=== PATIENT | male | born 1955 | race Caucasian/White ===

== ENCOUNTER 2019-12-26 11:23 | Outpatient (CLI) | payer OTHER, SELFPAY ==
--- NOTE | ~2019-12-26 | CT_ITS ---
EXAMINATION: CT lung screening EXAM DATE: 12/26/2019 11:47 INDICATION: Personal history of nicotine dependence. TECHNIQUE: Spiral low dose CT of the chest without contrast. Axial, coronal and sagittal images were reviewed. The dose-length product (DLP) for this examination was 636.86 mGy-cm. The exposure was t ailored according to patient size (auto mA exposure control), and iterative reconstruction (ASIR) was used as additional dose reduction technique. There is no prior study for comparison. FINDINGS: Small region of lingular scarring. Hilar, mediastinal calcifications from prior granulomat ous process. Several scattered pulmonary nodules 2 mm or less. Tracheobronchial tree is patent. Th ere is no mediastinal, hilar or axillary lymphadenopathy. There are no pleural or pericardial effus ions. There is no pneumothorax. Heart normal in size. There is moderate coronary arterial calci fication, arterial sclerosis. There is mild emphysema. Upper abdomen is unremarkable. Patient has d iffuse idiopathic skeletal hyperostosis (DISH). Old left rib fractures. IMPRESSION: Lung-RADS category 2, benign appearance or behavior (<1% chance of malignancy); recommend continued LDCT screening in 1 year. > Reviewed, dictated and finalized at location B.
== END 2019-12-26 11:24 | disposition home or self-care (01) ==
LOC: ANHIMG 11:28
PROVIDERS: PCP Internal Medicine; Visit Provider Internal Medicine
DX: Z12.2 Encounter for screening for malignant neoplasm of respiratory organs (principal); Z87.891 Personal history of nicotine dependence
CPT/HCPCS: G0297

== ENCOUNTER 2020-07-10 07:14 | Outpatient (CLI) | payer OTHER, SELFPAY ==
[2020-07-10 08:25] LABS: Basophils Absolute Auto 0.1 K/mm3 (0.0-0.1); Basophils Percent Auto 0.9 % (0.2-1.2); Eosinophils Absolute Auto 0.4 K/mm3 (0-0.3); Eosinophils Percent Auto 7.3 % (0-4.4); Hematocrit 36.4 % (42.0-52.0); Hemoglobin 12.2 g/dL (14.0-18.0); Immature Granulocyte Absolute 0.04 K/mm3 (0.00-0.031); Immature Granulocyte Percent A 0.7 % (0-0.5); Lymphocytes Absolute Auto 1.76 K/mm3 (0.9-3.2); Lymphocytes Percent Auto 31.9 % (18.3-44.2); Mean Corpuscular HGB Conc 33.5 g/dl (32-36); Mean Corpuscular Hemoglobin 31.2 pg (26-34); Mean Corpuscular Volume 93.1 fl (80-100); Mean Platelet Volume 10.6 fl (7.4-10.4); Monocytes Absolute Auto 0.4 K/mm3 (0.1-0.6); Monocytes Percent Auto 7.4 % (2.6-8.5); Neutrophils Absolute Auto 2.9 K/mm3 (1.3-6.7); Neutrophils Percent Auto 51.8 % (45.5-73.1); Platelet Count Result 176 k/mm3 (150-375); Red Blood Count 3.91 M/mm3 (4.6-6.20); Red Cell Distribution Width 12.8 % (11.5-14.5); White Blood Count 5.5 K/mm3 (4.5-10.0)
[2020-07-10 08:39] LABS: Alanine Aminotransferase 67 U/L (4-50); Alkaline Phosphatase 62 U/L (38-126); Anion Gap 7 mmol/L (8-16); Aspartate Amino Transferase 58 U/L (17-59); Bilirubin,Total 0.5 mg/dL (0.2-1.3); Blood Urea Nitrogen 17 mg/dL (9-20); Calcium 9.1 mg/dL (8.4-10.2); Carbon Dioxide 23 mmol/L (22-30); Chloride 108 mmol/L (98-107); Cholesterol 166 mg/dL (0-200); Estimated Glomerular Filt Rate > 60; Glucose 139 mg/dL (75-110); HDL Direct 37 mg/dL; Potassium 4.2 mmol/L (3.4-5.0); Sodium 138 mmol/L (137-145); Triglycerides 108 mg/dL (<150)
[2020-07-10 08:50] LABS: LDL Cholesterol Direct 98 mg/dL
[2020-07-10 09:09] LABS: Creatinine Urine 184.7 mg/dL; Prostate Specific Antigen < 0.1 ng/mL (< OR = 4.0)
[2020-07-10 09:17] LABS: MALB Creatinine Ratio 42.4 mg/g (0-30); Microalbumin Urine Random 78.3 mg/L (0-16.7)
[2020-07-10 09:19] LABS: Hemoglobin A1C 6.7 % (<5.7)
== END 2020-07-10 07:15 | disposition home or self-care (01) ==
PROVIDERS: PCP Internal Medicine; Visit Provider Internal Medicine
DX: I10 Essential (primary) hypertension (principal); E11.9 Type 2 diabetes mellitus without complications; Z12.5 Encounter for screening for malignant neoplasm of prostate
CPT/HCPCS: 36415; 80053; 80061; 82043; 83036; 84153; 85025; G0103

== ENCOUNTER 2020-09-06 17:18 | Emergency (ER) | payer OTHER, SELFPAY ==
--- NOTE | 2020-09-06 17:24 | ED.GENADULT ---
HPI - General Adult General Chief complaint: Skin/Abscess/Foreign Body Stated complaint: possible rash Time Seen by Provider: 09/06/20 17:24 Source: patient Mode of arrival: ambulatory Limitations: no limitations History of Present Illness HPI narrative: 64-year-old male patient presents to the [facility] with complaints of a rash that he first noticed last night to the right side of the abdomen and states he has also been having pain to the right side of abdomen as well as the right side of the back. Patient denies any fevers, body aches or chills. Patient denies any nausea, vomiting or diarrhea. Patient states he has been taking Tylenol for the pain. Related Data Home Medications Medication Instructions Recorded Confirmed Azo Cranberry + Probiotic 1 tab-cap PO DAILY 09/06/20 09/06/20 amlodipine 5 mg PO DAILY 09/06/20 09/06/20 lisinopril 20 mg PO DAILY 09/06/20 09/06/20 metformin 500 mg PO BID 09/06/20 09/06/20 Allergies Allergy/AdvReac Type Severity Reaction Status Date / Time No Known Allergies Allergy Verified 09/06/20 17:36 Review of Systems Review of Systems: Narrative: CONSTITUTIONAL: Denies fever, chills, or sweats. EYES: Denies visual changes, redness, or discharge. ENT: Denies rhinorrhea, congestion, sore throat, or otalgia. CARDIOVASCULAR: Denies chest pain, palpitations, or edema. RESPIRATORY: Denies cough or dyspnea. GASTROINTESTINAL: Denies abdominal pain, nausea, vomiting, or diarrhea. GENITOURINARY: Denies dysuria or hematuria. SKIN: Positive rash to right abdomen since last night with pain to the area for the last 5 days. MUSCULOSKELETAL: Denies back pain, joint pain, or myalgia. NEUROLOGIC: Denies headache, numbness, or weakness. PSYCHIATRIC: Denies anxiety or depression. FORMERLY [facility] Past Medical History Medical History (Updated 09/06/20 @ 17:40 by NATALYA Mckeon) COPD (chronic obstructive pulmonary disease) Fractures Left arm fracture as child Genitourinary disorder Urethra surgery and occasional self cath Hypertension Sleep apnea Surgical History Surgical History (Updated 09/06/20 @ 17:25 by NATALYA Mckeon) History of bilateral carpal tunnel release Hx of cholecystectomy Family History Family History (Updated 09/06/20 @ 17:26 by NATALYA Mckeon) Other Family history of cardiovascular disease Family history of malignant neoplasm Lung cancer Lupus Social History Social History Smoking status: Former smoker Smoking end date: 10/15/14 Alcohol intake: never Exam Narrative: Exam Narrative: GENERAL: Well-appearing, well-nourished, and in no acute distress. HEAD: Normocephalic, atraumatic. EYES: PERRLA and EOMI. ENT: Nares clear, no rhinorrhea or epistaxis. Mucous membranes moist. NECK: Supple. No lymphadenopathy CHEST: Clear to auscultation. No respiratory distress. HEART: Regular rate and rhythm. No murmur heard. Normal peripheral pulses. ABDOMEN: Soft, nontender, nondistended, normal active bowel sounds. EXTREMITIES: Normal range of motion. No edema. SKIN: Warm, dry, patient has pustule rash on a erythemic base noted to the right side of the chest wall right under the breast that wraps around to the back right along the T6/T7 dermatome. The rash does not cross midline. NEURO: No focal deficits. Alert and oriented x3. Course Vital Signs Vital signs: Vital Signs Temperature 37.4 C 09/06/20 17:30 Pulse Rate 80 09/06/20 17:30 Respiratory Rate 16 09/06/20 17:30 Blood Pressure 153/77 H 09/06/20 17:30 Pulse Oximetry 98 09/06/20 17:30 Temperature 37.4 C 09/06/20 17:30 Pulse Rate 80 09/06/20 17:30 Respiratory Rate 16 09/06/20 17:30 Blood Pressure 153/77 H 09/06/20 17:30 Pulse Oximetry 98 09/06/20 17:30 Vital signs reviewed. The patient has been informed that they may have pre-hypertension or Hypertension based on a BP reading in the department. I recommend that the patient call the primary care provider listed
[2020-09-06 17:30] VITALS: BP 153/77; PULSE 80; RESP 16; TEMP 37.4; O2SAT 98
== END 2020-09-06 17:45 | disposition home or self-care (01) ==
PROVIDERS: Emergency Provider Nurse Practitioner Family; PCP Internal Medicine
DX: B02.9 Zoster without complications (principal); Z87.891 Personal history of nicotine dependence; J44.9 Chronic obstructive pulmonary disease, unspecified; I10 Essential (primary) hypertension; G47.30 Sleep apnea, unspecified
CPT/HCPCS: 99213; G0463

== ENCOUNTER 2020-12-07 09:05 | Outpatient (CLI) | payer OTHER, SELFPAY ==
[2020-12-07 09:45] LABS: Add Urine Microscopic? YES; Appearance Urine Clear (Clear); Bacteria Urine Trace /hpf; Bilirubin Urine Negative (Negative); Blood Urine 1+ (Negative); Color Urine Yellow (Yellow); Glucose Urine UA Negative (Negative); Ketones Urine Negative (Negative); Leukocyte Esterase Ur 1+ LEU/UL (NEGATIVE); Nitrate Urine Negative (Negative); Protein Urine Negative (Negative); RBC Urine 21-50 /hpf (0-2); Specific Grav Ur 1.015 (1.001-1.035); Squamous Epithelial Cell Urine Occasional /hpf (Few); Urobilinogen Urine Negative mg/dL (<2.0); WBC Urine 21-30 /hpf (0-3)
== END 2020-12-07 09:06 | disposition home or self-care (01) ==
PROVIDERS: PCP Internal Medicine
DX: N35.911 Unspecified urethral stricture, male, meatal (principal)
CPT/HCPCS: 81001; 87077; 87086; 87088

== ENCOUNTER 2021-01-26 09:02 | Outpatient (CLI) | payer OTHER, SELFPAY | END 2021-01-26 09:03 | disposition home or self-care (01) | LOC: ANHCOVIDVC 09:02 | PROVIDERS: PCP Internal Medicine | DX: Z23 Encounter for immunization (principal) | CPT/HCPCS: 0001A; 91300 ==

== ENCOUNTER 2021-02-16 08:58 | Outpatient (CLI) | payer OTHER, SELFPAY | END 2021-02-16 08:59 | disposition home or self-care (01) | LOC: ANHCOVIDVC 08:58 | PROVIDERS: PCP Internal Medicine | DX: Z23 Encounter for immunization (principal) | CPT/HCPCS: 0002A; 91300 ==

== ENCOUNTER 2021-03-17 08:07 | Outpatient (CLI) | payer OTHER, SELFPAY ==
[2021-03-17 08:49] LABS: Alanine Aminotransferase 101 U/L (4-50); Albumin Level 4.4 g/dL (3.5-5.1); Alkaline Phosphatase 80 U/L (38-126); Anion Gap 11 mmol/L (8-16); Aspartate Amino Transferase 110 U/L (17-59); Bilirubin,Total 0.5 mg/dL (0.2-1.3); Blood Urea Nitrogen 14 mg/dL (9-20); Calcium 9.6 mg/dL (8.4-10.2); Carbon Dioxide 21 mmol/L (22-30); Chloride 109 mmol/L (98-107); Cholesterol 204 mg/dL (0-200); Estimated Glomerular Filt Rate > 60; Glucose 172 mg/dL (75-110); HDL Direct 45 mg/dL; Potassium 4.5 mmol/L (3.4-5.0); Sodium 141 mmol/L (137-145); Triglycerides 157 mg/dL (<150)
[2021-03-17 08:50] LABS: Basophils Absolute Auto 0.1 K/mm3 (0.0-0.1); Basophils Percent Auto 0.8 % (0.2-1.2); Eosinophils Absolute Auto 0.4 K/mm3 (0-0.3); Eosinophils Percent Auto 6.4 % (0-4.4); Hematocrit 42.6 % (42.0-52.0); Hemoglobin A1C 7.4 % (<5.7); Immature Granulocyte Absolute 0.05 K/mm3 (0.00-0.031); Immature Granulocyte Percent A 0.8 % (0-0.5); Lymphocytes Absolute Auto 1.67 K/mm3 (0.9-3.2); Lymphocytes Percent Auto 27.6 % (18.3-44.2); Mean Corpuscular HGB Conc 32.9 g/dl (32-36); Mean Corpuscular Hemoglobin 30.6 pg (26-34); Mean Corpuscular Volume 93.2 fl (80-100); Mean Platelet Volume 10.2 fl (7.4-10.4); Monocytes Absolute Auto 0.5 K/mm3 (0.1-0.6); Monocytes Percent Auto 7.8 % (2.6-8.5); Neutrophils Absolute Auto 3.4 K/mm3 (1.3-6.7); Neutrophils Percent Auto 56.6 % (45.5-73.1); Platelet Count Result 174 k/mm3 (150-375); Red Blood Count 4.57 M/mm3 (4.6-6.20); Red Cell Distribution Width 13.1 % (11.5-14.5); White Blood Count 6.1 K/mm3 (4.5-10.0)
[2021-03-17 09:01] LABS: LDL Cholesterol Direct 93 mg/dL
[2021-03-17 09:21] LABS: Prostate Specific Antigen < 0.1 ng/mL (< OR = 4.0)
[2021-03-17 09:28] LABS: Creatinine Urine 197.3 mg/dL
[2021-03-17 09:32] LABS: MALB Creatinine Ratio 4.7 mg/g (0-30); Microalbumin Urine Random 9.3 mg/L (0-16.7)
[2021-03-17 09:41] LABS: Free T4 Free Thyroxine 1.05 ng/mL (0.78-2.19)
[2021-03-17 09:56] LABS: Hepatitis B Surface Antigen Negative (Negative)
[2021-03-17 10:02] LABS: HAV RESULT Negative (Negative); Hepatitis B Core IgM Result Negative (Negative)
[2021-03-17 10:14] LABS: Hepatitis C Virus Antibody Negative (Negative)
[2021-03-21 08:25] LABS: GGT 59 U/L (3-70)
== END 2021-03-17 08:08 | disposition home or self-care (01) ==
LOC: ANHLAB 08:10
PROVIDERS: PCP Internal Medicine; Visit Provider Internal Medicine
DX: Z12.5 Encounter for screening for malignant neoplasm of prostate (principal); E11.9 Type 2 diabetes mellitus without complications; I10 Essential (primary) hypertension; R74.01 Elevation of levels of liver transaminase levels
CPT/HCPCS: 36415; 80053; 80061; 80074; 82043; 82977; 83036; 84153; 84439; 84443; 85025; G0103

== ENCOUNTER 2021-03-21 07:37 | Outpatient (CLI) | payer OTHER, SELFPAY ==
--- NOTE | ~2021-03-21 | CT_ITS ---
EXAMINATION: CT lung screening DATE: 03/21/2021 08:13 INDICATION: History of nicotine dependence TECHNIQUE: Computed tomography (CT) of the chest was performed without intravenous contrast. The dose -length product was 684.93 mGy-cm. Automated exposure control and iterative reconstruction technique were employed. COMPARISON: CT dated 12/26/2019 FINDINGS: No thoracic lymphadenopathy. There are calcified mediastinal and hilar lymph nodes, consist ent with chronic granulomatous disease. No significant pleural or pericardial effusion. There are chr onic healed left rib fractures. Heart size normal. There is atherosclerosis of the aorta and coronary arteries. There is lingular atelectasis/scarring. Stable small bilateral pulmonary nodules measuring 4 mm or less, largest measuring 4 mm, right upper lobe image 50. No new pulmonary nodules. No endobr onchial lesions. There are cholecystectomy clips. Otherwise, the upper abdomen is unremarkable. IMPRESSION: 1. Lung-RADS category 2: Benign appearance or behavior. Continue annual screening with noncontrast lo w-dose chest CT in 12 months. Reviewed, dictated and finalized at location B. IMPRESSION: 1. Lung-RADS category 2: Benign appearance or behavior. Continue annual screeni ng with noncontrast low-dose chest CT in 12 months.
--- NOTE | ~2021-03-21 | US_ITS ---
US abdomen limited INDICATION: PROCEDURE: Realtime right upper abdominal ultrasound. COMPARISON: No prior studies for comparison. FINDINGS: The pancreas is normal without focal mass or pancreatic ductal dilation. Liver echotexture is increased, consistent with fatty infiltration. Liver is enlarged. There is normal directional fl ow in the portal vein. Gallbladder is surgically absent. Common bile duct measures 8.4 mm. No sonographic Swanson's sign. IMPRESSION: 1: Hepatomegaly with fatty infiltration. 2: Status post cholecystectomy with expected prominence of the common bile duct. Reviewed, dictated and finalized at location B. IMPRESSION: 1: Hepatomegaly with fatty infiltration. 2: Status post cholecystectomy with expected prominence of the common bile duct .
== END 2021-03-21 07:38 | disposition home or self-care (01) ==
LOC: ANHIMG 07:43
PROVIDERS: PCP Internal Medicine; Visit Provider Internal Medicine
DX: R74.01 Elevation of levels of liver transaminase levels (principal); Z87.891 Personal history of nicotine dependence; Z90.49 Acquired absence of other specified parts of digestive tract
CPT/HCPCS: 71271; 76705

== ENCOUNTER 2021-03-25 07:45 | Outpatient (CLI) | payer OTHER, SELFPAY ==
[2021-03-25 09:19] LABS: Basophils Absolute Auto 0.1 K/mm3 (0.0-0.1); Basophils Percent Auto 0.9 % (0.2-1.2); Eosinophils Absolute Auto 0.4 K/mm3 (0-0.3); Eosinophils Percent Auto 6.8 % (0-4.4); Hemoglobin 13.1 g/dL (14.0-18.0); Immature Granulocyte Absolute 0.05 K/mm3 (0.00-0.031); Immature Granulocyte Percent A 0.9 % (0-0.5); Lymphocytes Absolute Auto 1.66 K/mm3 (0.9-3.2); Lymphocytes Percent Auto 29.6 % (18.3-44.2); Mean Corpuscular HGB Conc 33.6 g/dl (32-36); Mean Corpuscular Hemoglobin 30.6 pg (26-34); Mean Corpuscular Volume 91.1 fl (80-100); Mean Platelet Volume 10.2 fl (7.4-10.4); Monocytes Absolute Auto 0.4 K/mm3 (0.1-0.6); Monocytes Percent Auto 7.1 % (2.6-8.5); Neutrophils Absolute Auto 3.1 K/mm3 (1.3-6.7); Neutrophils Percent Auto 54.7 % (45.5-73.1); Platelet Count Result 177 k/mm3 (150-375); Red Blood Count 4.28 M/mm3 (4.6-6.20); Red Cell Distribution Width 13.1 % (11.5-14.5); White Blood Count 5.6 K/mm3 (4.5-10.0)
[2021-03-25 09:22] LABS: Add Urine Microscopic? YES; Appearance Urine Clear (Clear); Bacteria Urine Trace /hpf; Bilirubin Urine Negative (Negative); Blood Urine Negative (Negative); Color Urine Yellow (Yellow); Glucose Urine UA Negative (Negative); Ketones Urine Negative (Negative); Leukocyte Esterase Ur Trace LEU/UL (Negative); Mucus Urine Few /lpf; Nitrate Urine Negative (Negative); Protein Urine 1+ mg/dL (Negative); Specific Grav Ur 1.028 (1.001-1.035); Squamous Epithelial Cell Urine Moderate /hpf (Few)
[2021-03-25 10:17] LABS: Alanine Aminotransferase 108 U/L (4-50); Albumin Level 4.1 g/dL (3.5-5.1); Alkaline Phosphatase 76 U/L (38-126); Anion Gap 9 mmol/L (8-16); Aspartate Amino Transferase 96 U/L (17-59); Bilirubin,Total 0.4 mg/dL (0.2-1.3); Blood Urea Nitrogen 15 mg/dL (9-20); Carbon Dioxide 23 mmol/L (22-30); Chloride 110 mmol/L (98-107); Estimated Glomerular Filt Rate > 60; Glucose 185 mg/dL (75-110); Parathyroid Intact 94.3 pg/mL (7.5-53.5); Potassium 4.6 mmol/L (3.4-5.0); Sodium 142 mmol/L (137-145); Uric Acid 6.4 mg/dL (3.5-8.5)
[2021-03-25 10:25] LABS: Erythrocyte Sedimentation Rate 38 mm/hr (0-20)
[2021-03-25 11:03] LABS: HIV 1/2 Ab P24 Ag Result Negative (Negative)
[2021-03-25 11:07] LABS: Rapid Plasma Reagin Non-Reactive (NonReactive)
[2021-03-25 11:21] LABS: Prostate Specific Antigen < 0.1 ng/mL (< OR = 4.0)
[2021-03-25 11:35] LABS: Complement C3 136 mg/dL (88-165)
[2021-03-25 11:43] LABS: Creatinine Urine 232.3 mg/dL
[2021-03-25 11:47] LABS: Microalbumin Urine Random 11.7 mg/L (0-16.7)
[2021-03-25 11:58] LABS: Vitamin D 25 Hydroxy 34.3 ng/mL
[2021-03-25 13:13] LABS: Hemoglobin A1C 7.6 % (<5.7)
[2021-03-28 21:17] LABS: Albumin 3.8 g/dL (3.8-4.8); Alpha 1 Globulin 0.3 g/dL (0.2-0.3); Alpha 2 Globulin 0.8 g/dL (0.5-0.9); Beta 1 Globulin 0.5 g/dL (0.4-0.6); Gamma Globulin 1.2 g/dL (0.8-1.7); Protein, Total 7.1 g/dL (6.1-8.1)
[2021-03-29 05:36] LABS: Kappa\\Lambda Light Chains 1.58 (0.26-1.65); Lambda Light Chain 22.4 mg/L (5.7-26.3)
[2021-03-30 00:15] LABS: ANCA Screen Negative (Negative)
[2021-03-31 13:07] LABS: Complement Total CH50 >60 U/mL (31-60)
[2021-03-31 18:39] LABS: Cryoglobulin, QL Negative (Negative)
== END 2021-03-25 07:46 | disposition home or self-care (01) ==
PROVIDERS: PCP Internal Medicine; Visit Provider Specialist
DX: Z12.5 Encounter for screening for malignant neoplasm of prostate (principal); N18.30 Chronic kidney disease, stage 3 unspecified; I12.9 Hypertensive chronic kidney disease with stage 1 through stage 4 chronic kidney disease, or unspecified chronic kidney disease; E78.5 Hyperlipidemia, unspecified; R60.9 Edema, unspecified; E55.9 Vitamin D deficiency, unspecified; N39.0 Urinary tract infection, site not specified; R73.09 Other abnormal glucose
CPT/HCPCS: 36415; 80053; 81001; 81050; 82043; 82306; 82570; 82595; 83036; 83883; 83970; 84153; 84155; 84165; 84550; 85025; 85652; 86021; 86038; 86160; 86162; 86225; 86334; 86592; 86703; G0103; G0432

== ENCOUNTER 2021-03-28 08:20 | Outpatient (CLI) | payer OTHER, SELFPAY ==
[2021-03-28 08:46] LABS: Collection Time Urine 24 HOURS
[2021-03-28 10:42] LABS: Creatinine Urine 156.4 mg/dL; Patient Weight 340 Lbs
[2021-03-28 11:17] LABS: Creatinine Clearance Urine 155.8 ml/min (75-125); Total Volume 24 Hour Urine 1800 ml
== END 2021-03-28 08:21 | disposition home or self-care (01) ==
PROVIDERS: PCP Internal Medicine; Visit Provider Specialist
DX: Z12.5 Encounter for screening for malignant neoplasm of prostate (principal); I12.9 Hypertensive chronic kidney disease with stage 1 through stage 4 chronic kidney disease, or unspecified chronic kidney disease; N18.30 Chronic kidney disease, stage 3 unspecified; E87.2 Acidosis; E78.5 Hyperlipidemia, unspecified; R60.9 Edema, unspecified; E55.9 Vitamin D deficiency, unspecified; N39.0 Urinary tract infection, site not specified; R73.09 Other abnormal glucose; Z11.4 Encounter for screening for human immunodeficiency virus [HIV]
CPT/HCPCS: 82575

== ENCOUNTER 2021-04-06 13:35 | Outpatient (CLI) | payer OTHER, SELFPAY ==
--- NOTE | ~2021-04-06 | US_ITS ---
US renal BI 04/06/2021 14:51 Procedure: Realtime transabdominal ultrasound of the kidneys and bladder. Indication: Chronic kidney disease Comparison: CT dated 10/16/2017 Findings: Renal echotexture is normal bilaterally without hydronephrosis, contour deforming mass or r enal calculus. The right kidney measures 12.1 cm and left kidney measures 11.3 cm. Bladder within no rmal limits, although not well distended. Impression: 1: Unremarkable renal ultrasound. No stones, masses or hydronephrosis. Reviewed, dictated and finalized at location B. Impression: 1: Unremarkable renal ultrasound. No stones, masses or hydronephrosis.
== END 2021-04-06 13:36 | disposition home or self-care (01) ==
LOC: ANHIMG 13:44
PROVIDERS: PCP Internal Medicine; Visit Provider Specialist
DX: N18.9 Chronic kidney disease, unspecified (principal)
CPT/HCPCS: 76775

== ENCOUNTER 2021-04-22 07:52 | Outpatient (CLI) | payer OTHER, SELFPAY ==
[2021-04-22 08:28] LABS: Basophils Percent Auto 0.7 % (0.2-1.2); Eosinophils Absolute Auto 0.4 K/mm3 (0-0.3); Eosinophils Percent Auto 7.1 % (0-4.4); Hematocrit 39.9 % (42.0-52.0); Hemoglobin 13.5 g/dL (14.0-18.0); Immature Granulocyte Absolute 0.05 K/mm3 (0.00-0.031); Immature Granulocyte Percent A 0.9 % (0-0.5); Lymphocytes Absolute Auto 1.69 K/mm3 (0.9-3.2); Lymphocytes Percent Auto 31.4 % (18.3-44.2); Mean Corpuscular HGB Conc 33.8 g/dl (32-36); Mean Corpuscular Hemoglobin 30.5 pg (26-34); Mean Corpuscular Volume 90.3 fl (80-100); Mean Platelet Volume 10.2 fl (7.4-10.4); Monocytes Absolute Auto 0.3 K/mm3 (0.1-0.6); Monocytes Percent Auto 6.3 % (2.6-8.5); Neutrophils Absolute Auto 2.9 K/mm3 (1.3-6.7); Neutrophils Percent Auto 53.6 % (45.5-73.1); Platelet Count Result 165 k/mm3 (150-375); Red Blood Count 4.42 M/mm3 (4.6-6.20); White Blood Count 5.4 K/mm3 (4.5-10.0)
[2021-04-22 08:36] LABS: Albumin Level 4.4 g/dL (3.5-5.1); Anion Gap 10 mmol/L (8-16); Blood Urea Nitrogen 16 mg/dL (9-20); Calcium 9.6 mg/dL (8.4-10.2); Carbon Dioxide 23 mmol/L (22-30); Chloride 105 mmol/L (98-107); Estimated Glomerular Filt Rate > 60; Glucose 174 mg/dL (75-110); Phosphorus 4.2 mg/dL (2.5-4.5); Potassium 4.4 mmol/L (3.4-5.0); Sodium 138 mmol/L (137-145); Uric Acid 6.2 mg/dL (3.5-8.5)
[2021-04-22 08:36] LABS: Add Urine Microscopic? YES; Appearance Urine Clear (Clear); Bilirubin Urine Negative (Negative); Blood Urine Negative (Negative); Color Urine Yellow (Yellow); Glucose Urine UA Negative (Negative); Ketones Urine Negative (Negative); Leukocyte Esterase Ur Trace LEU/UL (Negative); Mucus Urine Rare /lpf; Nitrate Urine Negative (Negative); Protein Urine Negative (Negative); Specific Grav Ur 1.023 (1.001-1.035); Squamous Epithelial Cell Urine Few /hpf (Few)
[2021-04-22 09:01] LABS: Hemoglobin A1C 7.9 % (<5.7)
[2021-04-22 09:07] LABS: Prostate Specific Antigen < 0.1 ng/mL (< OR = 4.0)
[2021-04-22 09:17] LABS: Parathyroid Intact 44.1 pg/mL (7.5-53.5)
[2021-04-22 09:23] LABS: Creatinine Urine 219.7 mg/dL
[2021-04-22 09:39] LABS: Vitamin D 25 Hydroxy 45.1 ng/mL
[2021-04-22 10:15] LABS: Erythrocyte Sedimentation Rate 36 mm/hr (0-20)
== END 2021-04-22 07:53 | disposition home or self-care (01) ==
PROVIDERS: PCP Internal Medicine; Visit Provider Specialist
DX: N18.2 Chronic kidney disease, stage 2 (mild) (principal); E11.65 Type 2 diabetes mellitus with hyperglycemia; E78.5 Hyperlipidemia, unspecified; E55.9 Vitamin D deficiency, unspecified; N39.0 Urinary tract infection, site not specified; Z11.4 Encounter for screening for human immunodeficiency virus [HIV]; Z12.5 Encounter for screening for malignant neoplasm of prostate; I12.9 Hypertensive chronic kidney disease with stage 1 through stage 4 chronic kidney disease, or unspecified chronic kidney disease
CPT/HCPCS: 36415; 80069; 81001; 82043; 82306; 83036; 83970; 84153; 84550; 85025; 85652; 87086

== ENCOUNTER 2021-05-31 07:26 | Outpatient (CLI) | payer OTHER, SELFPAY ==
[2021-05-31 08:16] LABS: Basophils Percent Auto 0.6 % (0.2-1.2); Eosinophils Absolute Auto 0.5 K/mm3 (0-0.3); Eosinophils Percent Auto 7.4 % (0-4.4); Hematocrit 39.4 % (42.0-52.0); Hemoglobin 13.1 g/dL (14.0-18.0); Immature Granulocyte Absolute 0.03 K/mm3 (0.00-0.031); Immature Granulocyte Percent A 0.5 % (0-0.5); Lymphocytes Absolute Auto 1.85 K/mm3 (0.9-3.2); Mean Corpuscular HGB Conc 33.2 g/dl (32-36); Mean Corpuscular Hemoglobin 30.8 pg (26-34); Mean Corpuscular Volume 92.5 fl (80-100); Monocytes Absolute Auto 0.5 K/mm3 (0.1-0.6); Monocytes Percent Auto 7.2 % (2.6-8.5); Neutrophils Absolute Auto 3.5 K/mm3 (1.3-6.7); Neutrophils Percent Auto 55.3 % (45.5-73.1); Platelet Count Result 173 k/mm3 (150-375); Red Blood Count 4.26 M/mm3 (4.6-6.20); Red Cell Distribution Width 13.2 % (11.5-14.5); White Blood Count 6.4 K/mm3 (4.5-10.0)
[2021-05-31 08:38] LABS: LDL Cholesterol Direct 42 mg/dL
[2021-05-31 08:47] LABS: Alanine Aminotransferase 96 U/L (4-50); Albumin Level 4.5 g/dL (3.5-5.1); Alkaline Phosphatase 75 U/L (38-126); Anion Gap 9 mmol/L (8-16); Aspartate Amino Transferase 88 U/L (17-59); Bilirubin,Total 0.5 mg/dL (0.2-1.3); Blood Urea Nitrogen 20 mg/dL (9-20); Calcium 9.4 mg/dL (8.4-10.2); Carbon Dioxide 25 mmol/L (22-30); Chloride 102 mmol/L (98-107); Cholesterol 110 mg/dL (0-200); Estimated Glomerular Filt Rate > 60; Glucose 181 mg/dL (65-110); HDL Direct 46 mg/dL; Potassium 4.7 mmol/L (3.4-5.0); Sodium 136 mmol/L (137-145); Triglycerides 95 mg/dL (<150)
[2021-05-31 08:53] LABS: Creatinine Urine 159.5 mg/dL
[2021-05-31 08:58] LABS: MALB Creatinine Ratio 6.1 mg/g (0-30); Microalbumin Urine Random 9.7 mg/L (0-16.7)
[2021-05-31 09:09] LABS: Vitamin D 25 Hydroxy 48.5 ng/mL
[2021-05-31 09:14] LABS: Hemoglobin A1C 8.3 % (<5.7)
== END 2021-05-31 07:27 | disposition home or self-care (01) ==
LOC: ANHLAB 07:30
PROVIDERS: PCP Internal Medicine; Visit Provider Internal Medicine
DX: R79.89 Other specified abnormal findings of blood chemistry (principal); E11.9 Type 2 diabetes mellitus without complications; Z79.899 Other long term (current) drug therapy; E78.5 Hyperlipidemia, unspecified; E55.9 Vitamin D deficiency, unspecified
CPT/HCPCS: 36415; 80053; 80061; 82043; 82306; 83036; 84439; 84443; 85025

== ENCOUNTER 2021-08-03 12:34 | Outpatient (CLI) | payer OTHER, SELFPAY ==
--- NOTE | ~2021-08-03 | US_ITS ---
EXAMINATION: US thyroid DATE: 08/03/2021 13:38 INDICATION: Abnormal findings of blood chemistry. Elevated TSH level. TECHNIQUE: Multiple ultrasound images of the thyroid were obtained. COMPARISON: None. FINDINGS: The right thyroid lobe measures 6.0 x 1.8 x 2.2 cm. The left thyroid lobe measures 3.7 x 1.2 x 1.3 c m. Thyroid isthmus measures 5 mm in thickness. No discrete nodules identified. Diffuse decreased echo genicity with coarsened echotexture throughout the thyroid. IMPRESSION: 1. Fuse heterogeneous decreased echogenicity with coarsened echotexture throughout the thyroid which could be seen with thyroiditis. No discrete thyroid nodules. 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 IMPRESSION: 1. Fuse heterogeneous decreased echogenicity with coarsened echotexture through out the thyroid which could be seen with thyroiditis. No discrete thyroid nodul es.
== END 2021-08-03 12:35 | disposition home or self-care (01) ==
LOC: ANHIMG 12:42
PROVIDERS: PCP Internal Medicine; Visit Provider Internal Medicine
DX: R79.89 Other specified abnormal findings of blood chemistry (principal)
CPT/HCPCS: 76536

== ENCOUNTER 2021-08-31 07:42 | Outpatient (CLI) | payer OTHER, SELFPAY ==
[2021-08-31 08:29] LABS: Add Urine Microscopic? YES; Appearance Urine Cloudy (Clear); Bacteria Urine Trace /hpf; Bilirubin Urine Negative (Negative); Color Urine Yellow (Yellow); Glucose Urine UA 3+ mg/dL (Negative); Ketones Urine Negative (Negative); Leukocyte Esterase Ur 2+ LEU/UL (Negative); Mucus Urine Rare /lpf; Nitrate Urine Positive (Negative); Protein Urine 1+ mg/dL (Negative); RBC Urine 21-50 /hpf (0-2); Squamous Epithelial Cell Urine Few /hpf (Few); Urobilinogen Urine Negative mg/dL (<2.0); WBC Clumps Urine Present /HPF; WBC Urine >75 /hpf
[2021-08-31 08:33] LABS: Alanine Aminotransferase 63 U/L (4-50); Albumin Level 4.4 g/dL (3.5-5.1); Alkaline Phosphatase 86 U/L (38-126); Anion Gap 11 mmol/L (8-16); Aspartate Amino Transferase 66 U/L (17-59); Bilirubin,Total 0.6 mg/dL (0.2-1.3); Blood Urea Nitrogen 20 mg/dL (9-20); Calcium 9.9 mg/dL (8.4-10.2); Carbon Dioxide 23 mmol/L (22-30); Chloride 101 mmol/L (98-107); Estimated Glomerular Filt Rate > 60; Glucose 429 mg/dL (65-110); Potassium 5.2 mmol/L (3.4-5.0); Sodium 135 mmol/L (137-145); Uric Acid 3.9 mg/dL (3.5-8.5)
[2021-08-31 08:35] LABS: Blood Urine Negative (Negative)
[2021-08-31 08:41] LABS: Basophils Absolute Auto 0.1 K/mm3 (0.0-0.1); Basophils Percent Auto 0.7 % (0.2-1.2); Eosinophils Absolute Auto 0.4 K/mm3 (0-0.3); Eosinophils Percent Auto 5.2 % (0-4.4); Hemoglobin 13.8 g/dL (14.0-18.0); Immature Granulocyte Absolute 0.03 K/mm3 (0.00-0.031); Immature Granulocyte Percent A 0.4 % (0-0.5); Lymphocytes Absolute Auto 2.16 K/mm3 (0.9-3.2); Lymphocytes Percent Auto 30.6 % (18.3-44.2); Mean Corpuscular HGB Conc 34.5 g/dl (32-36); Mean Corpuscular Hemoglobin 30.4 pg (26-34); Mean Corpuscular Volume 88.1 fl (80-100); Mean Platelet Volume 10.5 fl (7.4-10.4); Monocytes Absolute Auto 0.5 K/mm3 (0.1-0.6); Monocytes Percent Auto 7.4 % (2.6-8.5); Neutrophils Absolute Auto 3.9 K/mm3 (1.3-6.7); Neutrophils Percent Auto 55.7 % (45.5-73.1); Platelet Count Result 174 k/mm3 (150-375); Red Blood Count 4.54 M/mm3 (4.6-6.20); Red Cell Distribution Width 12.7 % (11.5-14.5); White Blood Count 7.1 K/mm3 (4.5-10.0)
[2021-08-31 08:42] LABS: Parathyroid Intact 37.5 pg/mL (7.5-53.5)
[2021-08-31 09:03] LABS: Creatinine Urine 120.9 mg/dL
[2021-08-31 09:08] LABS: Microalbumin Urine Random 72.5 mg/L (0-16.7)
[2021-08-31 09:10] LABS: Hemoglobin A1C 12.7 % (<5.7)
[2021-08-31 10:13] LABS: Erythrocyte Sedimentation Rate 36 mm/hr (0-20)
[2021-08-31 11:33] LABS: Vitamin D 25 Hydroxy 41.8 ng/mL
== END 2021-08-31 07:43 | disposition home or self-care (01) ==
LOC: ANHLAB 07:47
PROVIDERS: PCP Internal Medicine; Visit Provider Specialist
DX: I12.9 Hypertensive chronic kidney disease with stage 1 through stage 4 chronic kidney disease, or unspecified chronic kidney disease (principal); N18.31 Chronic kidney disease, stage 3a; E11.65 Type 2 diabetes mellitus with hyperglycemia; E78.5 Hyperlipidemia, unspecified; R60.9 Edema, unspecified; E55.9 Vitamin D deficiency, unspecified
CPT/HCPCS: 36415; 80053; 81001; 82043; 82306; 83036; 83970; 84550; 85025; 85652; 87086; 87147; 87181; 87186

== ENCOUNTER 2021-09-25 09:04 | Outpatient (CLI) | payer MEDICARE, OTHER, SELFPAY ==
--- NOTE | ~2021-09-25 | US_ITS ---
EXAMINATION: US right upper quadrant EXAM DATE: 09/25/2021 09:47 INDICATION: Elevated liver enzymes level. TECHNIQUE: Multiple grayscale and Doppler images of the abdomen right upper quadrant were obtained (b y a technologist who performed the scan) and subsequently reviewed. Comparison is made to prior exami nation from 04/06/2021. FINDINGS: The pancreatic head and body are normal in appearance. The pancreatic tail is not visualized. Mildl y echogenic liver parenchyma, hepatic steatosis. Mildly lobular liver surface, possible cirrhosis. There is no evidence of intrahepatic biliary duct dilation. Portal venous flow was seen in the hepat opedal, normal direction and has normal Doppler waveform. No right-sided hydronephrosis. Common bile duct measures 8 mm, which is normal for postcholecystectomy status. The gallbladder fossa is unremarkable. IMPRESSION: 1. Hepatic steatosis. 2. Possible cirrhosis. 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
== END 2021-09-25 09:05 | disposition home or self-care (01) ==
LOC: ANHIMG 09:06
PROVIDERS: PCP Internal Medicine; Visit Provider Internal Medicine
DX: R74.01 Elevation of levels of liver transaminase levels (principal); K76.0 Fatty (change of) liver, not elsewhere classified
CPT/HCPCS: 76705

== ENCOUNTER 2021-10-20 07:50 | Outpatient (CLI) | payer MEDICARE, OTHER, SELFPAY ==
[2021-10-20 11:17] LABS: Hematocrit 36.6 % (42.0-52.0); Hemoglobin 12.4 g/dL (14.0-18.0); Mean Corpuscular HGB Conc 33.9 g/dl (32-36); Mean Corpuscular Hemoglobin 30.8 pg (26-34); Mean Corpuscular Volume 90.8 fl (80-100); Mean Platelet Volume 10.2 fl (7.4-10.4); Platelet Count Result 178 k/mm3 (150-375); Red Blood Count 4.03 M/mm3 (4.6-6.20); Red Cell Distribution Width 13.5 % (11.5-14.5); White Blood Count 6.8 K/mm3 (4.5-10.0)
[2021-10-20 11:26] LABS: INR 1.1; Prothrombin Time 14.2 Seconds (11.1-14.7)
[2021-10-20 11:38] LABS: Alanine Aminotransferase 37 U/L (4-50); Albumin Level 4.4 g/dL (3.5-5.1); Alkaline Phosphatase 59 U/L (38-126); Anion Gap 11 mmol/L (8-16); Aspartate Amino Transferase 42 U/L (17-59); Bilirubin,Total 0.5 mg/dL (0.2-1.3); Blood Urea Nitrogen 18 mg/dL (9-20); Calcium 9.5 mg/dL (8.4-10.2); Carbon Dioxide 19 mmol/L (22-30); Chloride 109 mmol/L (98-107); Estimated Glomerular Filt Rate > 60; Glucose 130 mg/dL (65-110); Potassium 4.1 mmol/L (3.4-5.0); Sodium 139 mmol/L (137-145)
[2021-10-21 02:44] LABS: Hepatitis C Virus Antibody Negative (Negative)
[2021-10-24 21:28] LABS: Actin Antibody (IgG) <20 U (<20)
[2021-10-26 17:14] LABS: Alpha Fetoprotein Tumor Marker 5.4 ng/mL (<6.1)
== END 2021-10-20 07:51 | disposition home or self-care (01) ==
PROVIDERS: PCP Internal Medicine; Visit Provider Internal Medicine Gastroenterology
DX: R74.8 Abnormal levels of other serum enzymes (principal); K71.6 Toxic liver disease with hepatitis, not elsewhere classified; R89.0 Abnormal level of enzymes in specimens from other organs, systems and tissues; R93.89 Abnormal findings on diagnostic imaging of other specified body structures
CPT/HCPCS: 36415; 80053; 82105; 82728; 83516; 84443; 85027; 85610; 86038; 86803

== ENCOUNTER 2022-02-02 09:08 | Outpatient (CLI) | payer MEDICARE, OTHER, SELFPAY ==
--- NOTE | ~2022-02-02 | US_ITS ---
EXAMINATION: US right upper quadrant DATE: 02/02/2022 09:49 INDICATION: Hepatic cirrhosis. TECHNIQUE: Multiple grayscale and Doppler ultrasound images of the abdomen were obtained. COMPARISON: Chest CT 03/21/2021 FINDINGS: The visualized portions of the head and body of the pancreas are normal. The liver is samina l without focal lesion. There is normal flow in main portal vein. The gallbladder is absent. The comm on duct is normal and measures 5 mm. IMPRESSION: 1. Normal right upper quadrant ultrasound status post cholecystectomy. Reviewed, dictated and finalized at location B.
== END 2022-02-02 09:09 | disposition home or self-care (01) ==
LOC: ANHIMG 09:12
PROVIDERS: PCP Internal Medicine; Visit Provider Internal Medicine Gastroenterology
DX: K74.60 Unspecified cirrhosis of liver (principal)
CPT/HCPCS: 76705

== ENCOUNTER 2022-02-24 08:15 | Outpatient (CLI) | payer MEDICARE, OTHER, SELFPAY ==
--- NOTE | ~2022-02-24 | US_ITS ---
EXAMINATION: US aorta DATE: 02/24/2022 09:18 INDICATION: Nicotine dependence TECHNIQUE: Grayscale, color Doppler, and pulsed Doppler images of the aorta and common iliac arteries were obtained. COMPARISON: None. FINDINGS: The proximal aorta measures 3.1 cm. The mid aorta measures 2.6 cm. The distal aorta measures 2.1 cm. The right common iliac artery measures 1.5 cm. The left common iliac artery measures 1.2 cm. IMPRESSION: 1. Normal caliber abdominal aorta. 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
== END 2022-02-24 08:16 | disposition home or self-care (01) ==
PROVIDERS: PCP Internal Medicine; Visit Provider Internal Medicine
DX: F17.200 Nicotine dependence, unspecified, uncomplicated (principal)
CPT/HCPCS: 76775

== ENCOUNTER 2022-04-13 13:45 | Outpatient (CLI) | payer MEDICARE, OTHER, SELFPAY ==
--- NOTE | ~2022-04-13 | CT_ITS ---
EXAMINATION: CT lung screening DATE: 04/13/2022 14:04 INDICATION: Personal history of nicotine dependence, prior smoker with 36 pack year history TECHNIQUE: Computed tomography (CT) of the chest was performed without intravenous contrast. The dose -length product (DLP) was 405.53 mGy-cm. Automated exposure control and iterative reconstruction tech [employer] were employed. COMPARISON: 03/21/2021 FINDINGS: There is mild emphysema. Stable pulmonary nodules measure up to 2 mm. No new or suspicious pulmonary nodule is identified. The lungs are free of acute opacities. No pathologically enlarged tho racic lymph nodes are identified. The heart size is normal. No pleural effusion or pneumothorax. Ther e is lateral gynecomastia. Chronic left-sided rib fractures are noted. There are bridging osteophytes at multiple levels in the spine, consistent with diffuse idiopathic skeletal hyperostosis (DISH). Ca lcified pulmonary nodules and calcified right hilar and subcarinal lymph nodes are consistent with ol d granulomatous disease. IMPRESSION: 1. Lung-RADS category 2: Benign appearance or behavior. Continue annual screening with noncontrast lo w-dose chest CT in 12 months. Reviewed, dictated and finalized at location F. IMPRESSION: 1. Lung-RADS category 2: Benign appearance or behavior. Continue annual screeni ng with noncontrast low-dose chest CT in 12 months.
== END 2022-04-13 13:46 | disposition home or self-care (01) ==
PROVIDERS: PCP Internal Medicine; Visit Provider Internal Medicine
DX: Z12.2 Encounter for screening for malignant neoplasm of respiratory organs (principal); Z87.891 Personal history of nicotine dependence
CPT/HCPCS: 71271

== ENCOUNTER 2022-04-24 17:18 | Emergency (ER) | payer MEDICARE, OTHER, SELFPAY ==
--- NOTE | ~2022-04-24 | XR_ITS ---
XR abdomen/kub 1V 04/24/2022 18:28 Indication: Abdomen pain Procedure: Supine and upright views of the abdomen Comparison: No prior studies for comparison. Findings: There is moderate gas in the small bowel and colon. No definite obstruction. There are chol ecystectomy clips. No free air identified. No evidence for pneumatosis. Impression: 1: Nonspecific bowel gas pattern with moderate gas throughout the small bowel and colon. No definite obstruction. 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 Impression: 1: Nonspecific bowel gas pattern with moderate gas throughout the small bowel a nd colon. No definite obstruction.
[2022-04-24 17:28] VITALS: BP 126/61; PULSE 78; RESP 18; TEMP 38.1; O2SAT 97
--- NOTE | 2022-04-24 17:39 | ED.ABDPAIN ---
HPI - Abdominal Pain General Chief Complaint: Abdominal Pain Stated Complaint: fever/abd pain/constipation Time Seen by Provider: 04/24/22 17:47 Source: patient and RN notes reviewed Mode of arrival: ambulatory Limitations: no limitations History of Present Illness HPI narrative: 66-year-old male with hx DM and HTN presented for complaint of mid lower abdominal pain/pressure, fever, chills, and burning with urination for about 2 days. Endorses feeling puny . Endorses diarrhea after using Colace yesterday, and small BM today was formed. States abdominal pain feels like pressure and gas. 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 Endorses negative home COVID test today. Denies vomiting, chest pain, shortness of breath, wheezing. Related Data Home Medications Medication Instructions Recorded Confirmed amlodipine 10 mg tablet 1 tablet PO DAILY 04/24/22 04/24/22 calcitriol 0.25 mcg capsule 1 cap PO DAILY 04/24/22 04/24/22 ergocalciferol (vitamin D2) 1,250 1 cap PO WEEKLY 04/24/22 04/24/22 mcg (50,000 unit) capsule lisinopril 20 mg tablet 1 mg PO BID 04/24/22 04/24/22 metformin 500 mg tablet 1 mg PO DAILY 04/24/22 04/24/22 oxybutynin chloride 10 mg 1 tablet PO DAILY 04/24/22 04/24/22 tablet,extended release 24 hr rosuvastatin 40 mg tablet 1 tablet PO DAILY 04/24/22 04/24/22 Allergies Allergy/AdvReac Type Severity Reaction Status Date / Time No Known Allergies Allergy Verified 04/24/22 17:38 Review of Systems Review of Systems: ROS negative except as in HPI All systems reviewed & are unremarkable except as noted in HPI and below PMFSH Past Medical History Medical History COPD (chronic obstructive pulmonary disease) Fractures Left arm fracture as child Genitourinary disorder Urethra surgery and occasional self cath Hypertension Sleep apnea Surgical History Surgical History History of bilateral carpal tunnel release Hx of cholecystectomy Family History Family History Other Family history of cardiovascular disease Family history of malignant neoplasm Lung cancer Lupus Social History Social History Smoking status: Former smoker Smoking end date: 10/15/14 Alcohol intake: never Gender identity (if verbalized by the patient): Male Comments At time of signature, I have reviewed and agree with nursing past medical, surgical, social and family history unless otherwise noted. Please see nursing chart for further information. There is no relevant family history pertinent to the presenting complaint Exam Narrative: GENERAL: Well-appearing, ENT: Mucous membranes pink and moist. CHEST: Clear to auscultation. HEART: Regular rate and rhythm. No murmur appreciated. Normal peripheral pulses. ABDOMEN: abd soft, nondistended, normal active bowel sounds. nontender abdomen, No guarding, rebound tenderness, asymmetry EXTREMITIES: Normal range of motion. No edema. SKIN: Warm, dry, no rash. Capillary refill normal. Normal skin turgor. NEURO: No focal deficits. Alert and oriented x3. Course Course Emergency Course: Patient is aware of diagnosis, understands and agrees to treatment plan. Anticipatory guidance given. Patient agrees to follow-up as directed and is aware of reasons to seek care at the emergency department. Portions of this record may have been created with voice recognition software Level of Care: Express Care Visit Vital Signs Vital signs: Vital Signs Temperature 100.5 F H 04/24/22 17:28 Pulse Rate 78 04/24/22 17:28 Respiratory Rate 18 04/24/22 17:28 Blood Pressure 126/61 04/24/22 17:28 Pulse Oximetry 97 04/24/22 17:28 Oxygen Delivery Room Air 04/24/22 17:28 Temperature 100.5 F H 04/24/22 17:28 Pulse Rate 78
== END 2022-04-24 19:34 | disposition left against medical advice (07) ==
PROVIDERS: Emergency Provider Nurse Practitioner Family; PCP Internal Medicine
DX: R10.30 Lower abdominal pain, unspecified (principal); Z87.891 Personal history of nicotine dependence; J44.9 Chronic obstructive pulmonary disease, unspecified; I10 Essential (primary) hypertension; G47.30 Sleep apnea, unspecified
CPT/HCPCS: 74018; 99213; G0463

== ENCOUNTER 2022-06-05 16:15 | Emergency (ER) | payer MEDICARE, OTHER, SELFPAY ==
--- NOTE | ~2022-06-05 | XR_ITS ---
EXAMINATION: XR ankle LT min 3V DATE: 06/05/2022 16:50 INDICATION: Left ankle swelling and pain TECHNIQUE: Anteroposterior, lateral, mortise, and additional oblique view of the ankle were obtained. COMPARISON: None. FINDINGS: Bone alignment is normal. There is no fracture. There is diffuse soft tissue swelling of an kle. A plantar calcaneal enthesophyte is noted. IMPRESSION: 1. Ankle soft tissue swelling without acute osseous abnormality. Reviewed, dictated and finalized at location B.
[2022-06-05 16:20] VITALS: BP 142/66; PULSE 65; RESP 18; TEMP 36.6; O2SAT 100
--- NOTE | 2022-06-05 17:00 | ED.LOWEXIN ---
HPI - Extremity Injury (Lower) General Chief Complaint: Extremity Injury, Lower Stated Complaint: left ankle pain Time Seen by Provider: 06/05/22 16:56 History of Present Illness HPI Narrative: Patient is a 66-year-old male who presents ER with left medial ankle pain. He reports he was trying to change a license plate while he was on a hill when he twisted his ankle and felt a pop. It causes discomfort to bear weight but he is still able to walk. No numbness or tingling. Did not sustain any other injury. He did take some Tylenol before coming in. Related Data Home Medications Medication Instructions Recorded Confirmed amlodipine 10 mg tablet 1 tablet PO DAILY 04/24/22 04/24/22 calcitriol 0.25 mcg capsule 1 cap PO DAILY 04/24/22 04/24/22 ergocalciferol (vitamin D2) 1,250 1 cap PO WEEKLY 04/24/22 04/24/22 mcg (50,000 unit) capsule lisinopril 20 mg tablet 1 mg PO BID 04/24/22 04/24/22 metformin 500 mg tablet 1 mg PO DAILY 04/24/22 04/24/22 oxybutynin chloride 10 mg 1 tablet PO DAILY 04/24/22 04/24/22 tablet,extended release 24 hr rosuvastatin 40 mg tablet 1 tablet PO DAILY 04/24/22 04/24/22 Allergies Allergy/AdvReac Type Severity Reaction Status Date / Time No Known Allergies Allergy Verified 04/24/22 17:38 Review of Systems Musculoskeletal: Musculoskeletal: Denies back pain, Reports arthralgias, Reports joint swelling and Denies muscle cramps Neurologic: Denies syncope, Denies focal weakness and Denies numbness [facility] Past Medical History Medical History COPD (chronic obstructive pulmonary disease) Fractures Left arm fracture as child Genitourinary disorder Urethra surgery and occasional self cath Hypertension Sleep apnea Surgical History Surgical History History of bilateral carpal tunnel release Hx of cholecystectomy Family History Family History Other Family history of cardiovascular disease Family history of malignant neoplasm Lung cancer Lupus Social History Social History (Reviewed 04/24/22 @ 20:19 by MARGARITO Gambino Smoking status: Former smoker Smoking end date: 10/15/14 Alcohol intake: never Gender identity (if verbalized by the patient): Male Exam Narrative: GENERAL: Well-appearing, well-nourished, and in no acute distress. HEAD: Normocephalic, atraumatic. EXTREMITIES: Normal range of motion. No edema. Mild swelling of the left ankle medially without pinpoint tenderness of the medial or lateral malleolus. Achilles tendon intact and nontender. SKIN: Warm, dry, no rash. NEURO: Alert and oriented x3. Sensation intact in the left foot. PSYCH: Normal mood and affect. Course Course Emergency Course: Ankle sprain. Discussed treatment. Patient declines Arron wrap as he has a ankle stirrup splint at home. Vital Signs Vital signs: Vital Signs Temperature 97.9 F 06/05/22 16:20 Pulse Rate 65 06/05/22 16:20 Respiratory Rate 18 06/05/22 16:20 Blood Pressure 142/66 H 06/05/22 16:20 Pulse Oximetry 100 06/05/22 16:20 Oxygen Delivery Room Air 06/05/22 16:20 Temperature 97.9 F 06/05/22 16:20 Pulse Rate 65 06/05/22 16:20 Respiratory Rate 18 06/05/22 16:20 Blood Pressure 142/66 H 06/05/22 16:20 Pulse Oximetry 100 06/05/22 16:20 Oxygen Delivery Room Air 06/05/22 16:20 Discharge Plan Discharge Clinical Impression: Ankle sprain and strain Patient Disposition: Home, Self-Care Condition: Stable Instructions: Ankle Sprain (ED), P.R.I.C.E. Treatment (ED) Additional Instructions: Return the ER if you suffer new injury, you have chest pain or shortness of breath, you cannot keep down food or water, you have additional concerns. Prescriptions: New naproxen 375 mg tablet 375 mg PO BID Qty: 14 0RF No Action metformin 500 mg tablet
== END 2022-06-05 17:32 | disposition home or self-care (01) ==
LOC: ANHED 17:25
PROVIDERS: Emergency Provider Emergency Medicine; PCP Internal Medicine
DX: S93.402A Sprain of unspecified ligament of left ankle, initial encounter (principal); J44.9 Chronic obstructive pulmonary disease, unspecified; I10 Essential (primary) hypertension; X50.0XXA Overexertion from strenuous movement or load, initial encounter
CPT/HCPCS: 73610; 99283

== ENCOUNTER → 2023-01-10 08:41 | Outpatient (CLI) | payer MEDICARE, OTHER, SELFPAY ==
--- NOTE | ~2023-01-10 | US_ITS ---
Limited Abdominal Sonogram: Real-time sonographic imaging of the right upper quadrant was performed. Clinical History: Cirrhosis Findings: The liver appears normal with no evidence of mass lesion or bile duct dilatation. Main por fernando vein demonstrates normal direction of flow. The gallbladder is absent, compatible prior cholecyst ectomy. The common bile duct measures 5 mm. The pancreas, aorta, and IVC are obscured by bowel gas s hadowing. Right kidney measures 10.4 cm in length, with probable mild hydronephrosis. Impression: Mild right hydronephrosis noted. Status post cholecystectomy. Reviewed, dictated and finalized at location . Impression: Mild right hydronephrosis noted. Status post cholecystectomy.
== END ==
PROVIDERS: PCP Internal Medicine; Visit Provider Internal Medicine Gastroenterology
DX: K74.60 Unspecified cirrhosis of liver (principal); Z90.49 Acquired absence of other specified parts of digestive tract
CPT/HCPCS: 76705

== ENCOUNTER → 2023-04-18 11:06 | Outpatient (CLI) | payer MEDICARE, OTHER, SELFPAY ==
--- NOTE | ~2023-04-18 | CT_ITS ---
EXAMINATION: CT lung screening DATE: 04/18/2023 11:23 INDICATION: TOBACCO USE TECHNIQUE: Computed tomography (CT) of the chest was performed without intravenous contrast. Addition al 3D reconstructions utilizing coronal maximum intensity projection (MIP) were performed. Automated exposure control and iterative reconstruction technique were employed. The dose-length product was 39 9.70 mGy-cm. COMPARISON: 04/13/2022 FINDINGS: Unchanged linear band of discoid atelectasis/scarring at the lingula. Couple unchanged 2 mm nodules i n the right middle lobe. Small cluster of tiny calcified nodules at the posterior basilar right lower lobe which along with calcified right hilar and mediastinal lymph nodes are consistent with old gran ulomatous disease. No other new or enlarging pulmonary nodules, pneumonia, pulmonary edema or pleural effusion. Heart size is normal. Atherosclerotic coronary artery calcification. No pericardial effusi on. Thoracic aorta is normal in caliber. Bilateral gynecomastia. Cholecystectomy clips at the gallbla dder fossa. There are bridging osteophytes at multiple levels in the spine, consistent with diffuse i diopathic skeletal hyperostosis (DISH). IMPRESSION: 1. . Lung-RADS category 2: Benign appearance or behavior. Continue annual screening with noncontrast low-dose chest CT in 12 months. Reviewed, dictated and finalized at location B. IMPRESSION: 1. . Lung-RADS category 2: Benign appearance or behavior. Continue annual scree hardy with noncontrast low-dose chest CT in 12 months.
== END ==
PROVIDERS: PCP Internal Medicine; Visit Provider Internal Medicine
DX: Z12.2 Encounter for screening for malignant neoplasm of respiratory organs (principal); Z87.891 Personal history of nicotine dependence
CPT/HCPCS: 71271

== ENCOUNTER 2023-07-18 10:44 | Emergency (ER) | payer MEDICARE, OTHER, SELFPAY ==
[2023-07-18 11:01] VITALS: BP 139/70; PULSE 77; RESP 18; TEMP 37.1; O2SAT 97
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
== END 2023-07-18 12:05 | disposition home or self-care (01) ==
PROVIDERS: Emergency Provider Nurse Practitioner Family; PCP Internal Medicine
DX: T24.201A Burn of second degree of unspecified site of right lower limb, except ankle and foot, initial encounter (principal); T31.0 Burns involving less than 10% of body surface; I10 Essential (primary) hypertension; J44.9 Chronic obstructive pulmonary disease, unspecified; Z79.84 Long term (current) use of oral hypoglycemic drugs; Z79.899 Other long term (current) drug therapy; Z87.891 Personal history of nicotine dependence; X17.XXXA Contact with hot engines, machinery and tools, initial encounter
CPT/HCPCS: 99213; G0463

== ENCOUNTER 2024-05-05 09:56 | Outpatient (CLI) | payer MEDICARE, OTHER, SELFPAY ==
--- NOTE | ~2024-05-05 | CT_ITS ---
EXAMINATION: CT lung screening DATE: 05/05/2024 10:15 INDICATION: personal history of nicotine dependence TECHNIQUE: Computed tomography (CT) of the chest was performed without intravenous contrast. Addition al 3D reconstructions utilizing coronal maximum intensity projection (MIP) were performed. Automated exposure control and iterative reconstruction technique were employed. The dose-length product was 45 8.02 mGy-cm. COMPARISON: None FINDINGS: Cluster of a few small calcified nodules at the posterior sulcus of the right lower lobe, tiny calcif ied nodule at the posterior segment of the right upper lobe and large calcified right hilar and media stinal lymph nodes which are all are consistent with old granulomatous disease. 3 mm not definitively calcified right middle lobe nodule. Mild discoid atelectasis at the lingula. No pneumonia, pulmonary edema or pleural effusion. Heart size normal. Chronic coronary artery calcific lesion. Thoracic aort a is normal in caliber. No pathologically enlarged thoracic lymphadenopathy. Cholecystectomy clips at the gallbladder fossa. Moderate to severe thoracic spondylosis with bridging osteophytes at multiple levels consistent with diffuse idiopathic skeletal hyperostosis (DISH). IMPRESSION: 1. Lung-RADS category 2: Benign appearance or behavior. Continue annual screening with noncontrast lo w-dose chest CT in 12 months. 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 IMPRESSION: 1. Lung-RADS category 2: Benign appearance or behavior. Continue annual screeni ng with noncontrast low-dose chest CT in 12 months.
== END 2024-05-05 09:57 ==
LOC: MICIMG 09:58
PROVIDERS: PCP Internal Medicine; Visit Provider Internal Medicine
DX: Z12.2 Encounter for screening for malignant neoplasm of respiratory organs (principal); Z87.891 Personal history of nicotine dependence
CPT/HCPCS: 71271

== ENCOUNTER 2024-06-19 09:12 | Outpatient (CLI) | payer MEDICARE, OTHER, SELFPAY ==
--- NOTE | ~2024-06-19 | US_ITS ---
Limited Abdominal Sonogram: Real-time sonographic imaging of the right upper quadrant was performed. Clinical History: Abnormal liver enzymes Findings: The liver appears echogenic, with no evidence of mass lesion or bile duct dilatation. Main portal vein demonstrates normal direction of flow. The gallbladder is absent, compatible prior scooter cystectomy. The common bile duct measures 6 mm. The visualized pancreas, aorta, and IVC are unremark able. Impression: Diffuse fatty infiltration of liver. Status post cholecystectomy. Reviewed, dictated and finalized at location . Impression: Diffuse fatty infiltration of liver. Status post cholecystectomy.
== END 2024-06-19 09:13 | disposition home or self-care (01) ==
LOC: MICIMG 09:13
PROVIDERS: PCP Internal Medicine; Visit Provider Internal Medicine Gastroenterology
DX: R74.8 Abnormal levels of other serum enzymes (principal); Z90.49 Acquired absence of other specified parts of digestive tract
CPT/HCPCS: 76705

== ENCOUNTER 2024-11-06 10:18 | Outpatient (CLI) | payer MEDICARE, OTHER, SELFPAY ==
--- NOTE | ~2024-11-06 | XR_ITS ---
EXAMINATION: XR foot LT min 3V DATE: 11/06/2024 11:01 INDICATION: Left foot pain. TECHNIQUE: 5 views of left foot were obtained. COMPARISON: Left foot radiographs 10/21/24 FINDINGS: There is mild hallux valgus. No fracture. There is mild osteoarthritis of first metatarsoph alangeal joint and some of the interphalangeal joints and midfoot joints. There are enthesophytes at the posterior and plantar aspects of calcaneal tuberosity. IMPRESSION: 1. Mild polyarticular osteoarthritis. 2. Mild hallux valgus. Reviewed, dictated and finalized at location B. [facility]
== END 2024-11-06 10:19 | disposition home or self-care (01) ==
PROVIDERS: PCP Internal Medicine; Visit Provider Internal Medicine
DX: M19.072 Primary osteoarthritis, left ankle and foot (principal); M20.12 Hallux valgus (acquired), left foot
CPT/HCPCS: 73630

== ENCOUNTER 2025-01-12 09:15 | Outpatient (CLI) | payer MEDICARE, OTHER, SELFPAY ==
--- NOTE | ~2025-01-12 | CT_ITS ---
EXAMINATION: CT IAC/mastoids BI wo con DATE: 01/12/2025 09:34 INDICATION: Asymmetrical sensorineural hearing loss. TECHNIQUE: Computed tomography (CT) of the temporal bones was performed without intravenous contrast. Automated exposure control and iterative reconstruction technique were employed. The dose-length pro duct was 342.83 mGy-cm. COMPARISON: None FINDINGS: RIGHT TEMPORAL BONE: The internal auditory canal, cochlea, vestibule, semicircular canals, vestibular aqueduct, carotid ca nal, jugular bulb, facial nerve course, ossicles, scutum, Prussak space, tympanic membrane, mastoid a ir cells, and external auditory canal are normal. LEFT TEMPORAL BONE: The internal auditory canal, cochlea, vestibule, semicircular canals, vestibular aqueduct, carotid ca nal, jugular bulb, facial nerve course, tympanic membrane, ossicles, scutum, Prussak space, mastoid a ir cells, and external auditory canal are normal. IMPRESSION: 1. Normal temporal bones. 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 IMPRESSION: 1. Normal temporal bones.
== END 2025-01-12 09:16 | disposition home or self-care (01) ==
LOC: MICIMG 09:16
PROVIDERS: PCP Internal Medicine; Visit Provider Nurse Practitioner Family
DX: H90.3 Sensorineural hearing loss, bilateral (principal)
CPT/HCPCS: 70480

== ENCOUNTER 2025-01-26 08:53 | Outpatient (CLI) | payer MEDICARE, SELFPAY ==
--- NOTE | ~2025-01-26 | MR_ITS ---
EXAMINATION: MR foot LT wo con DATE: 01/26/2025 09:43 INDICATION: Left foot sprain TECHNIQUE: Magnetic resonance imaging (MRI) of the left fore/mid foot was performed without intraveno us contrast. Sequences included sagittal T1-weighted FSE, sagittal fluid sensitive FSE STIR, coronal PD-weighted FS FSE, coronal T1-weighted FSE, axial PD-weighted FS FSE, and axial PD-weighted FSE. COMPARISON: Radiographs dated 11/06/2024 FINDINGS: There is 2-3 mm distraction of chronic ununited fractures extending transversely across the midportio n of the first metatarsal head fibular sesamoid and across the distal margin of the tibial sesamoid. Alignment is otherwise normal. No other fractures identified. Polyarticular osteoarthritis, moderate severity at the naviculocuneiform joint with subarticular edema-like signal changes at the both sides of the cephalad aspect of the articulation of the navicular with the medial and mid cuneiforms. Anson tional moderate osteoarthritis subarticular edema-like signal change at both sides of the reticulatio n between the head of the first metatarsal and the tibial sesamoid. Additional mild polyarticular ost eoarthritis at many of the remaining joints in the mid and forefoot. The Lisfranc ligament complex an d the collateral ligament complex at the metatarsophalangeal and interphalangeal joints are normal. V isualized portions of the flexor and extensor tendons are normal. Diffuse subcutaneous edema througho ut the mid and forefoot. No joint effusions, bursitis, tenosynovitis or other abnormal fluid collecti ons. IMPRESSION: 1. Mild distraction of now chronic ununited fracture extending across the first metatarsal tibial and fibular sesamoids. 2. Polyarticular osteoarthritis, moderate severity at the naviculocuneiform articulation and at the b ase of the first metatarsal with the tibial sesamoid and mild at multiple additional joints in the mi d and forefoot. 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 IMPRESSION: 1. Mild distraction of now chronic ununited fracture extending across the first metatarsal tibial and fibular sesamoids. 2. Polyarticular osteoarthritis, moderate severity at the naviculocuneiform art iculation and at the base of the first metatarsal with the tibial sesamoid and mild at multiple additional joints in the mid and forefoot.
== END 2025-01-26 08:54 | disposition home or self-care (01) ==
LOC: MICIMG 08:55
PROVIDERS: PCP Internal Medicine; Visit Provider Podiatrist Foot & Ankle Surgery
DX: M19.072 Primary osteoarthritis, left ankle and foot (principal); S93.402D Sprain of unspecified ligament of left ankle, subsequent encounter; X58.XXXD Exposure to other specified factors, subsequent encounter
CPT/HCPCS: 73718